=== PATIENT | female | born 1960 | race Caucasian/White ===

== ENCOUNTER → 2016-07-22 | Outpatient (CLI) | payer OTHER, MEDICAID ==
[~2016-07-22] MED LIST: CYCL7.5T15 PO; LIS5T GT; METF-312 PO; NIF10C GT; SIMVPOW2 XX; TRIA50TA2 PO
== END | disposition home or self-care (01) ==
LOC: Rad HDHVI 13:07
PROVIDERS: ATTEND Internal Medicine Cardiovascular Disease
DX: R06.02 Shortness of breath (principal)
CPT/HCPCS: 93306